=== PATIENT | female | born 1950 | race African-American/Black ===

== ENCOUNTER → 2021-11-28 | Outpatient (CLI) | payer OTHER | END | disposition home or self-care (01) | LOC: CAT 13:34 | PROVIDERS: ATTEND Specialist | DX: M43.17 Spondylolisthesis, lumbosacral region (principal); M51.37 Other intervertebral disc degeneration, lumbosacral region; M48.07 Spinal stenosis, lumbosacral region ==

== ENCOUNTER → 2021-12-25 | Outpatient (CLI) | payer OTHER ==
[~2021-12-25] MED LIST: ALLERGY PO; APPLE CIDER VI500 MG PO; COZAAR 25 MG TA25 M1 PO; FISH OIL 1,0001 EAC9 PO; LEVO-T75 MCG PO; NORVASC5 MG PO; OMEPRAZOLE40 MG PO; SLEEP AID50 MG PO; ZETIA10 MG PO
[2021-12-25 14:45] LABS: HEMATOCRIT 36.6 % (37.0-47.0); HEMOGLOBIN 12.3 gm/dL (12.0-15.0); MCH 28.3 pg (26.0-34.0); MCHC 33.6 g/dL (28.0-37.0); MCV 84.4 fL (80.0-100.0); RBC 4.34 mil/uL (4.20-5.00); RDW 13.3 % (10.5-14.5)
[2021-12-25 14:47] LABS: URINE BILIRUBIN NEGATIVE (Negative); URINE BLOOD NEGATIVE (Negative); URINE CLARITY CLEAR; URINE COLOR YELLOW; URINE GLUCOSE-RANDOM* NEGATIVE (Negative); URINE KETONES NEGATIVE (Negative); URINE LEUKOCYTES-REFLEX NEGATIVE (Negative); URINE NITRITE-REFLEX NEGATIVE (Negative); URINE PROTEIN (DIPSTICK) NEGATIVE (Negative); URINE UROBILINOGEN 0.2 E.U./dl (0.2-1.0)
[2021-12-25 15:05] LABS: APTT 26.1 Seconds (24.5-32.8); INR 1.08; PROTIME 11.7 Seconds (10.5-12.1)
[2021-12-25 15:08] LABS: CREATININE 0.8 mg/dL (0.6-1.0); POTASSIUM 3.6 mmol/L (3.5-5.1); TOTAL BILIRUBIN 0.7 mg/dL (0.2-1.0); TOTAL PROTEIN 6.8 g/dL (6.4-8.2)
--- NOTE | 2021-12-25 15:16 | EKG ---
[address] [address] ELECTROCARDIOGRAM REPORT Name: PAULAGRAEME Autumn Room #: [facility]#: [id number] Admission: 12/25/21 Attend Phys: Buck Kc, Discharge: Date of : 50 Report #: [id number] [facility] Test Date: 2021-12-25 Test Time: 13:41:15 Pat Name: GRAEME MITCHELL Department: Room: Gender: F Table Cover Folder: Roberto PANIAGUA : 1950 Requested By: Buck Kc Order Number: [id number] MD: José Kirkpatrick Measurements Intervals [place] Rate: 82 P: 55 AK: 184 QRS: 13 QRSD: 86 T: 33 QT: 363 QTc: 424 Interpretive Statements Sinus rhythm Probable left atrial enlargement No previous ECG available for comparison Electronically Signed On 12-25-2021 15:15:47 [employer] by José Kirkpatrick [email or web address] <ELECTRONICALLY SIGNED> By: José Kirkpatrick MD, [facility] 12/25/21 1515 [id number] José Kirkpatrick MD, FACC /EPI
== END ==
LOC: PAC 10:25
PROVIDERS: ATTEND Specialist
DX: Z01.812 Encounter for preprocedural laboratory examination (principal); Z01.810 Encounter for preprocedural cardiovascular examination; M43.16 Spondylolisthesis, lumbar region; M48.07 Spinal stenosis, lumbosacral region

== ENCOUNTER → 2022-01-03 | Outpatient (CLI) | payer OTHER | LOC: LAB | PROVIDERS: ATTEND Student in an Organized Health Care Education/Training Program | DX: Z20.822 Contact with and (suspected) exposure to COVID-19 (principal) ==

== ENCOUNTER 2022-01-08 06:29 | Inpatient (IN) | payer OTHER ==
[~2022-01-08] VITALS: Ht 160 cm; Wt 96.2 kg
[2022-01-08 07:05] VITALS: BP 132/81
[2022-01-08 17:29] VITALS: BP 145/76
[2022-01-08 19:22] VITALS: BP 118/69
--- NOTE | 2022-01-08 19:48 | NUR ---
Patient arrived to floor from PACU, alert and oriented x4, family at bedside, vital sign stable, COURT MAGISTRATE morphine pump start in PACU, patient using the COURT MAGISTRATE button for pain medication. Pain level at 9. Complained of itchy and RN paging Hospitalist pending response. Call light within reach, will continous monitoring.
--- NOTE | 2022-01-08 23:08 | NUR ---
Pt c/o about apnea monitor keeping her awake. Education provided about its purpose. Continues to use HUNTER. Talked to Inez/for Dr Kc and orders received for other pain treatment alternatives if patient so wishes to have HUNTER discontinued.Pt updated.
--- NOTE | 2022-01-09 00:20 | NUR ---
Pt is laying flat. Only one pillow. Log rolled to the left and incision with aquacel c/d/i. REBECCA drain with moderate drainage. Pt continues to be paranoid and angry. Taking pictures of all medications she is receiving. She stated "am going to agnieszka this place" but did not give me specifics.Will continue to provide therapeutic ear and understanding. Pt already fired [employer] from going into her room.
--- NOTE | 2022-01-09 02:50 | NUR ---
at around midnight, pt requested for apnea to be turned off and RETAIL BUYER to continue. Deanna RADER notified. Cont pulse ox in place.Correia adequate u/o. moving toes to both feet, some pain to right leg.Scds and teds in place.Room air.REBECCA patent.Call light within reach.
--- NOTE | 2022-01-09 07:44 | NUR ---
data capture clerk pump discontinued this morning at around 0730. Pt started on percocet.
[2022-01-09 07:56] VITALS: BP 149/48
[2022-01-09 08:09] LABS: ABSOLUTE NEUTROPHILS 6.5 thou/uL (1.4-8.2); BASOPHILS 0.2 % (0.0-2.0); HEMOGLOBIN 10.4 gm/dL (12.0-15.0); MCH 28.3 pg (26.0-34.0); MCHC 33.5 g/dL (28.0-37.0); MCV 84.4 fL (80.0-100.0); MONOCYTES 8.7 % (1.0-8.0); PLATELET COUNT 219 thou/uL (150-400); POLYS 77.1 % (36.0-66.0); RBC 3.67 mil/uL (4.20-5.00); RDW 13.3 % (10.5-14.5); WBC 8.5 thou/uL (4.0-11.0)
[2022-01-09 08:23] LABS: CALCIUM 8.8 mg/dL (8.5-10.1); CREATININE 0.8 mg/dL (0.6-1.0)
--- NOTE | 2022-01-09 10:24 | NUR ---
ASSUMED PT CARE THIS AM. NIGHT NURSE DISCONTINUED MORPHINE SEWING DEMONSTRATOR THIS AM. GIVEN OXYCODONE THIS AM FOR PAIN. PT IS ALERT & ORIENTED X4 BUT ANXIOUS AT TIMES. PT HAS IV SITE ON L WRIST RUNNING NS @80ML/HR. PT HAS REBECCA DRAIN AND MONITOR OUTPUT Q4H PER PA. PT HAS DEMAR HOSES KNEE HIGH BILATERAL, AQUACEL DRESSING ON THE BACK AND SCD. PT IS ON ROOM AIR. PT DAUGHTER AT THE BEDSIDE. WILL FOLLOW POC.
[2022-01-09 15:02] LABS: FOLIC ACID 10.1 ng/mL (8.6-58.9)
[2022-01-09 19:28] VITALS: BP 107/53
--- NOTE | 2022-01-10 04:44 | NUR ---
PT REMAINS FLAT. NO C/O ITCHING THIS FAR IN SHIFT.LAXATIVES GIVEN PER SCHEDULE, PT ANXIOUS ABOUT HAVING TO HAVE A BM. PT HAD A HEADACHE AT THE START OF SHIFT, OXYCODONE GIVEN AND PATIENT REPORTED RELIEF.FERGUSON WITH GOOD U/O.SCDS AND TEDS IN PLACE. DRSG TO LOWER BACK C/D/I.NEURO VASCULAR CHECKS INTACT. REBECCA WITH SEROSANGUINOUS OUTPUT. PT LOGROLLED TO HER RIGHT SIDE AND PROPPED WITH PILLOWS-TOLERATED WELL.WILL CONTINUE WITH POC TILL EOS.
[2022-01-10 07:17] LABS: ABSOLUTE NEUTROPHILS 4.9 thou/uL (1.4-8.2); BASOPHILS 0.9 % (0.0-2.0); EOSINOPHILS 0.8 % (0.0-3.0); HEMATOCRIT 31.9 % (37.0-47.0); HEMOGLOBIN 10.7 gm/dL (12.0-15.0); LYMPHOCYTES 19.6 % (24.0-44.0); MCH 28.2 pg (26.0-34.0); MCHC 33.5 g/dL (28.0-37.0); MCV 84.3 fL (80.0-100.0); MONOCYTES 9.1 % (1.0-8.0); PLATELET COUNT 210 thou/uL (150-400); POLYS 69.6 % (36.0-66.0); RBC 3.79 mil/uL (4.20-5.00); RDW 13.5 % (10.5-14.5)
[2022-01-10 07:24] LABS: CALCIUM 8.7 mg/dL (8.5-10.1); CREATININE 0.6 mg/dL (0.6-1.0); POTASSIUM 3.7 mmol/L (3.5-5.1)
[2022-01-10 07:30] VITALS: BP 133/69
--- NOTE | 2022-01-10 09:09 | NUR ---
ASSUMED PT CARE THIS AM. CONTINUE TO MONITOR REBECCA DRAIN Q4H AND BEDREST PER PA. WILL ENCOURAGE PO FLUID INTAKE. PT WAS COMPLAINING THIS AM TO PA AND INFORMED NURSE IN HOME AIDE TO SEE PT AND PT DAUGHTER AT THE BEDSIDE. PT STILL HAVE FERGUSON CATH IN PLACE, DEMAR GASTELUM KNEE HIGH, AQUACEL DRESSING, SCD. WILL FOLLOW POC.
--- NOTE | 2022-01-10 15:58 | NUR ---
Patient admits post lumbar fusion. She is on bedrest. Patient has dtr at bedside. She reports she resides in home alone, split level home. She has 7 steps from garage then 7 steps to bedroom. She has a walker and cane. She has tub shower and walk in shower with a seat. patient reports she will need rehab prior to home. Reviewed with patient acute rehab, therapy evals, skilled care. Patient reports interest in and also [facility] as she has had a family member at [facility] in past. Casemgt following.
[2022-01-10 16:14] VITALS: BP 130/53
[2022-01-10 20:01] VITALS: BP 127/52
--- NOTE | 2022-01-11 01:41 | NUR ---
PT a&o x4. pt repositioned and pain meds given at 1999. shortly after pts daughter left she developed 10/10 headache and neck pain. pt stated she was feeling "agitated" and "knows she isnt crazy it just happens everytime my daughter leaves". prn anxiety and scheduled medications givens. multiple attempts made by this rn to comfort the patient and reasure. pt educated on s/s of anxiety as well as post op pain management. pt remains uninterested in education repeatedly informing this rn she "is not crazy" "i know everyone thinks im crazy"
[2022-01-11 07:51] LABS: ABSOLUTE NEUTROPHILS 4.1 thou/uL (1.4-8.2); BASOPHILS 0.4 % (0.0-2.0); EOSINOPHILS 2.4 % (0.0-3.0); HEMOGLOBIN 10.8 gm/dL (12.0-15.0); LYMPHOCYTES 21.8 % (24.0-44.0); MCH 28.3 pg (26.0-34.0); MCHC 33.7 g/dL (28.0-37.0); MCV 83.9 fL (80.0-100.0); MONOCYTES 9.6 % (1.0-8.0); PLATELET COUNT 209 thou/uL (150-400); POLYS 65.8 % (36.0-66.0); RBC 3.81 mil/uL (4.20-5.00); RDW 13.2 % (10.5-14.5); WBC 6.2 thou/uL (4.0-11.0)
[2022-01-11 08:03] LABS: CALCIUM 8.9 mg/dL (8.5-10.1); CREATININE 0.6 mg/dL (0.6-1.0); POTASSIUM 3.9 mmol/L (3.5-5.1)
--- NOTE | 2022-01-11 11:32 | NUR ---
CONSULT RECEIVED FOR REHAB EVALUATION. PATIENT CURRENTLY ON BED REST. NO THERAPY EVALUATIONS YET. PHILOMENA MARKHAM WITH TO SEE PATIENT AFTER THERAPY EVALUATIONS COMPLETED, HOPEFULL THIS 01/12/22. THANK YOU FOR THIS REFERRAL.
--- NOTE | 2022-01-11 12:59 | NUR ---
Pt still on bedrest. PT/OT/rehab evals pending and will likely not be until tomorrow due to bedrest orders. Discussed [facility] and [facility]. Pt would like both to eval and see who can accept. She will likely be ready Sat. Dtr at bedside and going up to tour [facility]. Referral faxed to [facility] and their liason was notified. Awaiting imput from her evals.
--- NOTE | 2022-01-11 15:16 | NUR ---
PT ASSESSED AT START OF SHIFT. C/O HEADACHE THIS AM 10. MEDS GIVEN WHICH HELPED. JANEL HANNA IN TO SEE PT AT 1130 AND DC'D REBECCA DRAIN AND CHANGED LUMBAR AQUACEL DSNG. PT NOW ALLOWED TO HAVE HEAD OF BED UP 30 DEGREES. SHE HAS BEEN DOING BETTER THIS AFTERNOON AND TAKING NAP AT PRESENT. DAUGHTER IN FOR VISIT FOR SEVERAL HOURS.
[2022-01-11 17:47] VITALS: BP 101/82
[2022-01-11 19:02] VITALS: BP 137/71
[2022-01-11 20:30] VITALS: BP 137/71
--- NOTE | 2022-01-12 03:55 | NUR ---
Assumed care at 1900. A/OX4,VSS. Continues on bedrest. C/o back pain/right leg, medicated per EMAR with slight relief. Repositioned every 2hrs as tolorated. Dsg on mid back C/D/I. Correia patent to DD with light yellow urine. Fall precautions in place,will continue to monitor pt.
[2022-01-12 06:29] LABS: BASOPHILS 0.3 % (0.0-2.0); EOSINOPHILS 3.4 % (0.0-3.0); HEMATOCRIT 31.9 % (37.0-47.0); HEMOGLOBIN 10.6 gm/dL (12.0-15.0); LYMPHOCYTES 21.3 % (24.0-44.0); MCH 28.2 pg (26.0-34.0); MCHC 33.3 g/dL (28.0-37.0); MCV 84.6 fL (80.0-100.0); PLATELET COUNT 224 thou/uL (150-400); RBC 3.78 mil/uL (4.20-5.00); RDW 12.8 % (10.5-14.5); WBC 6.2 thou/uL (4.0-11.0)
[2022-01-12 07:21] LABS: CALCIUM 8.7 mg/dL (8.5-10.1); CREATININE 0.7 mg/dL (0.6-1.0); POTASSIUM 3.4 mmol/L (3.5-5.1)
[2022-01-12 08:00] VITALS: BP 161/93
[2022-01-12 20:58] VITALS: BP 150/79
--- NOTE | 2022-01-13 00:58 | NUR ---
ASSUMED PT CARE AT 1900.PT C/O PAIN ON HER BACK,MANAGED WITH MED.AQUACEL DRSG TO HER BACK CLEAN AND INTACT.PT REPOSITIONED PER HER REQUEST.PT WAS A LITTLE FRUSTRATED AT NOT BEING ABLE TO MOST THINGS HERSELF,PT STATED"I THINK I AM GOING TO ". EMOTIONAL SUPPORT GIVEN.THIS NURSE SPENT SOME TIME WITH PT REASSURING HER THAT SHE WILL BE OKAY.PT FELT BETTER AFTERWARDS.PT SLEEPING ON HER BED AT THIS TIME.FERGUSON CATHETER IN PLACE WITH YELLOW URINE NOTED IN BAG. REPORT GIVEN TO ANOTHER RN TAJOHN TOOK OVER PT'S CARE AT 0030.
--- NOTE | 2022-01-13 06:09 | NUR ---
RECEIVED CARE OF THIS PATIENT AT 0030. PATIENT ALERT AND ORIENTED X4. C/O PAIN. MED GIVEN. REMAINS ON BEDREST AND TURNS. PATIENT ANXIOUS ABOUT HOW SHE FEELS. STATES THAT SOMETHING IS WRONG AND SHE CAN'T TAKE MUCH MORE. TRIED TO EXPLAIN THAT THIS IS D/T HER SURGERY AND THAT SHE NEEDS TO MOVE MORE. FLUIDS INFUSING THROUGH LW IV. STATES SLEPT LITTLE THIS SHIFT.
[2022-01-13 07:30] VITALS: BP 158/94
[2022-01-13 08:13] LABS: ABSOLUTE NEUTROPHILS 4.5 thou/uL (1.4-8.2); BASOPHILS 0.3 % (0.0-2.0); EOSINOPHILS 2.4 % (0.0-3.0); HEMATOCRIT 31.1 % (37.0-47.0); HEMOGLOBIN 10.4 gm/dL (12.0-15.0); LYMPHOCYTES 18.5 % (24.0-44.0); MCHC 33.6 g/dL (28.0-37.0); MCV 83.4 fL (80.0-100.0); PLATELET COUNT 278 thou/uL (150-400); POLYS 68.8 % (36.0-66.0); RBC 3.72 mil/uL (4.20-5.00); WBC 6.6 thou/uL (4.0-11.0)
[2022-01-13 08:16] LABS: CALCIUM 8.9 mg/dL (8.5-10.1); CREATININE 0.6 mg/dL (0.6-1.0); POTASSIUM 3.2 mmol/L (3.5-5.1)
--- NOTE | 2022-01-13 09:58 | NUR ---
Assumed care of pt at 0700. Pt a&ox4. Pt states "pain is really high and has never really been controlled throughout my hospital stay." Provider aware. Physical therapy will see pt this am. Dressing c/d/i. IVF infusing. Call light within reach. Fall precuations in place. Will continue to monitor.
[2022-01-13 16:00] VITALS: BP 104/79
[2022-01-13 19:27] VITALS: BP 149/57
[2022-01-14 07:21] VITALS: BP 150/96
--- NOTE | 2022-01-14 07:49 | NUR ---
PT LYING IN BED. CATHETER IN PLACE. DILAUDID ALTERNATED WITH MORPHINE PROVIDING PARTIAL PAIN RELIEF. FREQUENT OBSERVATION.
[2022-01-14 08:22] LABS: ABSOLUTE NEUTROPHILS 4.6 thou/uL (1.4-8.2); BASOPHILS 0.4 % (0.0-2.0); EOSINOPHILS 1.7 % (0.0-3.0); HEMATOCRIT 32.5 % (37.0-47.0); HEMOGLOBIN 10.8 gm/dL (12.0-15.0); LYMPHOCYTES 20.3 % (24.0-44.0); MCH 27.9 pg (26.0-34.0); MCHC 33.3 g/dL (28.0-37.0); MONOCYTES 9.1 % (1.0-8.0); PLATELET COUNT 294 thou/uL (150-400); POLYS 68.5 % (36.0-66.0); RBC 3.87 mil/uL (4.20-5.00); WBC 6.7 thou/uL (4.0-11.0)
[2022-01-14 08:37] LABS: CALCIUM 8.8 mg/dL (8.5-10.1); CREATININE 0.7 mg/dL (0.6-1.0); POTASSIUM 3.4 mmol/L (3.5-5.1)
[2022-01-14 16:14] VITALS: BP 147/89
--- NOTE | 2022-01-14 16:38 | NUR ---
PT ASSESSED AT START OF SHIFT. STILL HAVING SOME RT LEG SCIATICA DOWN TO TOES W/ SOME OCC NUMBNESS IN TOES. THERAPIST AND RN ASSISTED PT OUT OF BED USING WALKER TO STAND AND TAKE SEVERAL STEPS AND SAT ON COMMODE AND HAD MODERATE SOFT BM. PT DID VERY WELL AND DID NOT C/O OF MUCH PAIN. JACQUES ISLAS UPDATED ON PT STATUS.
[2022-01-14 19:55] VITALS: BP 121/74
--- NOTE | 2022-01-15 05:50 | NUR ---
PT LYING IN BED. TORADOL PROVIDING PARTIAL PAIN RELIEF. FERGUSON IN PLACE. RESTING COMFORTABLY. NO NEEDS VOICED. CALL LIGHT WITHIN REACH. FREQUENT OBSERVATION.
[2022-01-15 06:59] LABS: ABSOLUTE NEUTROPHILS 6.4 thou/uL (1.4-8.2); BASOPHILS 0.4 % (0.0-2.0); EOSINOPHILS 0.1 % (0.0-3.0); HEMATOCRIT 33.4 % (37.0-47.0); HEMOGLOBIN 11.2 gm/dL (12.0-15.0); LYMPHOCYTES 10.7 % (24.0-44.0); MCH 28.3 pg (26.0-34.0); MCHC 33.4 g/dL (28.0-37.0); MCV 84.8 fL (80.0-100.0); MONOCYTES 7.6 % (1.0-8.0); PLATELET COUNT 292 thou/uL (150-400); POLYS 81.2 % (36.0-66.0); RBC 3.94 mil/uL (4.20-5.00); RDW 12.8 % (10.5-14.5); WBC 7.9 thou/uL (4.0-11.0)
[2022-01-15 07:07] LABS: CALCIUM 9.4 mg/dL (8.5-10.1); CREATININE 0.9 mg/dL (0.6-1.0); POTASSIUM 3.7 mmol/L (3.5-5.1)
--- NOTE | 2022-01-15 07:58 | NUR ---
Assess due length of stay. S/P lumbar fusion for spinal stenosis 01/08. Hx obesity. Eating 50-60% of regular diet. Presents low nutrition risk
[2022-01-15 08:23] VITALS: BP 134/81
[2022-01-15 16:00] VITALS: BP 121/57
--- NOTE | 2022-01-15 16:24 | NUR ---
Spoke with patient regarding acute rehab [facility] vs [facility]. Patient wants to talk with children and will have decision in am.
--- NOTE | 2022-01-15 19:41 | NUR ---
Patient sat up in the chair for a few hour, gaspar removed, resting in bed, pain medication given prn. Call light within reach, will continous monitoring.
[2022-01-15 20:07] VITALS: BP 123/63
--- NOTE | 2022-01-16 04:29 | NUR ---
Pt. rested quietly at intervals during the night when checked on during frequent rounds. She was given pain meds for c/o back pain (see emar) with some relief noted. Up to the bathroom with gait belt and walker. Bed alarm is on.
[2022-01-16 07:22] VITALS: BP 127/79
[2022-01-16 08:39] LABS: ABSOLUTE NEUTROPHILS 6.7 thou/uL (1.4-8.2); BASOPHILS 0.3 % (0.0-2.0); EOSINOPHILS 0.3 % (0.0-3.0); HEMOGLOBIN 10.9 gm/dL (12.0-15.0); LYMPHOCYTES 12.7 % (24.0-44.0); MCH 28.1 pg (26.0-34.0); MCHC 33.1 g/dL (28.0-37.0); MCV 85.1 fL (80.0-100.0); MONOCYTES 7.6 % (1.0-8.0); PLATELET COUNT 310 thou/uL (150-400); POLYS 79.1 % (36.0-66.0); RBC 3.88 mil/uL (4.20-5.00); RDW 12.9 % (10.5-14.5); WBC 8.5 thou/uL (4.0-11.0)
[2022-01-16 15:30] VITALS: BP 110/54
--- NOTE | 2022-01-16 16:31 | NUR ---
PATIENT TOURED REHAB UNIT THIS DATE WITH REHAB STAFF MEMBER. BREAK OUT WORKER ATTEMPTED TO LATER VISIT WITH PATIENT REGARDING EXPECTATIONS/REQUIREMENTS, BUT PATIENT WAS DROSEY AND NAUSEOUS. WILL ATTEMPT TO VISIT WITH PATIENT IN THE AM TOMOROW, 01/17/22.
--- NOTE | 2022-01-16 16:48 | NUR ---
Assumed patient care at shift change. Patient was oriented X4 but crying with pain. Patient voiced her pain at 10/10. Patient was given PRN analgesic per emar. Patient did ambulate from bed to toilet and back to chair with 1-2 assist. Patient was drowsy afterward; overmedicating noted. Patient toured [facility] and will talk to liason when more clear headed. Aquacel removed and two 4X4s in place with tape; C/D/I. Appetite is fair. Nausea voiced & relieved with non-med intervention. Denies further needs
[2022-01-16 22:00] VITALS: BP 127/66
--- NOTE | 2022-01-17 04:24 | NUR ---
Pt. rested quietly at intervals during the night when checked on during frequent rounds. Crying in pain and pain meds given (see emar) with some relief noted. No c/o nausea. Bed alarm is on.
--- NOTE | 2022-01-17 05:00 | NUR ---
Pt. crying in pain to her right hip. She had her brother on the phone and voiced that toradol helped in the past with her pain. Deanna QUACH called and notified. New order for one time ivp toradol (see cpoe).
[2022-01-17 07:59] VITALS: BP 167/90
[2022-01-17 08:21] VITALS: BP 167/90
[2022-01-17] MEDS ORDERED: BACLOFEN 10MG T10 MG PO (09:40)
[2022-01-17] MEDS ORDERED: LORAZEPAM 0.50.5 MG PO (09:41)
[2022-01-17] MEDS ORDERED: MIRALAX17 GM PO (09:41)
[2022-01-17] MEDS ORDERED: NORCO7.5 PO (09:41)
[2022-01-17] MEDS ORDERED: MEDROLDOSEPACK PO (09:42)
[2022-01-17] MEDS ORDERED: DILAUDID 2 MG TA2 MG PO (09:47)
[2022-01-17 11:38] LABS: ABSOLUTE NEUTROPHILS 7.9 thou/uL (1.4-8.2); BASOPHILS 0.4 % (0.0-2.0); EOSINOPHILS 0.5 % (0.0-3.0); HEMATOCRIT 35.1 % (37.0-47.0); HEMOGLOBIN 11.6 gm/dL (12.0-15.0); MCH 27.5 pg (26.0-34.0); MCV 83.2 fL (80.0-100.0); MONOCYTES 9.8 % (1.0-8.0); PLATELET COUNT 462 thou/uL (150-400); POLYS 76.3 % (36.0-66.0); RBC 4.22 mil/uL (4.20-5.00); RDW 13.3 % (10.5-14.5); WBC 10.4 thou/uL (4.0-11.0)
--- NOTE | 2022-01-17 11:40 | NUR ---
Spoke with patient, dtr and other dtr Magaly. patient has chosen [facility] for post acute care. Sp with [facility] they have bed avail and arranged van transport for 1300. Chart copied. orders faxed. dtrs are notified of dc and timeframe. No new covid needed.
--- NOTE | 2022-01-17 13:47 | NUR ---
Patient was ready for discharge this day. Pain still controlled with PRN analgesics; patient will be continuing these at the Rehab. Patient still up x1 with a GB; painful. Po intake adequate. At time of discharge pain medication was administered. Rehab nurse was notified when given report. IV discontinued. Belongings with patient. Patient left with transporter; no issues.
== END 2022-01-17 13:20 | DRG 460 ==
LOC: PRE → TBA 06:29 → 4S 06:29 → PRE 10:45 → 4S 16:39
PROVIDERS: Physician Assistant; ADMIT Specialist; ATTEND Specialist
PROC: 4A11X4G Monitoring of Peripheral Nervous Electrical Activity, Intraoperative, External Approach (ICD-10-PCS; principal; 2022-01-08)
PROC: 0SG1071 Fusion of 2 or more Lumbar Vertebral Joints with Autologous Tissue Substitute, Posterior Approach, Posterior Column, Open Approach (ICD-10-PCS; principal; 2022-01-08)
PROC: 01NB0ZZ Release Lumbar Nerve, Open Approach (ICD-10-PCS; principal; 2022-01-08)
PROC: 0SB20ZZ Excision of Lumbar Vertebral Disc, Open Approach (ICD-10-PCS; principal; 2022-01-08)
PROC: 01NR0ZZ Release Sacral Nerve, Open Approach (ICD-10-PCS; principal; 2022-01-08)
PROC: 00NY0ZZ Release Lumbar Spinal Cord, Open Approach (ICD-10-PCS; principal; 2022-01-08)
DX: M48.061 Spinal stenosis, lumbar region without neurogenic claudication (principal); G96.11 Dural tear; M53.2X6 Spinal instabilities, lumbar region; I10 Essential (primary) hypertension; E03.9 Hypothyroidism, unspecified; F41.1 Generalized anxiety disorder; E66.01 Morbid (severe) obesity due to excess calories; Z68.37 Body mass index [BMI] 37.0-37.9, adult; K59.00 Constipation, unspecified; Z88.8 Allergy status to other drugs, medicaments and biological substances; M54.16 Radiculopathy, lumbar region
CPT/HCPCS: 10102; 50010; 50101; 50331; 50402; 50455; 50850; 51878; 52258; 56525; 56528; 57103; 58457; 58544; 58545; 58546; 58567; 58572; 58745; 58759; 58783; 58786; 59200; 59201; 62110; 62900; 70005